=== PATIENT | male | born 2000 | race Caucasian/White ===

== ENCOUNTER 2018-10-13 16:25 | Emergency (ER) | payer OTHER ==
[2018-10-13] MEDS ORDERED: SODIUM CHLORIDE 0.9% 1,000 ML IV ONE (17:05)
--- NOTE | 2018-10-13 17:05 | ED Physician Documentation ---
History of Present Illness - Stated complaint Stated Complaint: FAST HEART - Chief complaint Chief Complaint: Cardiac - History obtained from History obtained from: Patient - Additonal information Additional information: The patient is a 18-year-old male who presents complaining of "fast heart rate" that started about 2 hours prior to arrival when eating [place] food. He reports associated nausea, without vomiting. He denies headache, chest pain, shortness of breath. He reports having similar symptoms about 5 years ago, lasting up to about 3 minutes before resolving spontaneously. He drinks coffee and zo. He denies the use of recreational drugs or recent alcohol. Review of Systems Constitutional: denies: Fever Eyes: denies: Irritation Ears: denies: Tinnitus/ringing Nose: denies: Congestion Throat: denies: Sore throat Cardiac: reports: Palpitations. denies: Chest pain / pressure Respiratory: denies: Dyspnea, Cough GI: denies: Abdominal Pain, Nausea, Vomiting : denies: Dysuria Skin: denies: Rash Musculoskeletal: denies: Back pain Neurologic: denies: Focal weakness, Numbness, Headache PD PAST MEDICAL HISTORY - Past Medical History Cardiovascular: None Respiratory: None Neuro: None Endocrine/Autoimmune: None - Present Medications Home Medications: Ambulatory Orders Medication Instructions Recorded Confirmed No Known Home Medications 10/13/18 10/13/18 - Allergies Allergies/Adverse Reactions: Allergies Allergy/AdvReac Type Severity Reaction Status Date / Time Penicillins Allergy Rash Verified 10/13/18 16:30 - Social History Does the pt smoke?: No PD ED PE NORMAL - Vitals Vital signs reviewed: Yes (Initially tachycardic and hypertensive.) - General General: Alert and oriented X 3, No acute distress, Well developed/nourished - HEENT HEENT: Atraumatic, Moist mucous membranes, Pharynx benign - Neck Neck: Supple, no meningeal sign, No adenopathy, No JVD - Cardiac Cardiac: No murmur, Other (Rapid rate, regular rhythm.) - Respiratory Respiratory: No respiratory distress, Clear bilaterally - Abdomen Abdomen: Non tender - Back Back: No CVA TTP - Derm Derm: No rash - Extremities Extremities: No edema, No calf tenderness / cord - Neuro Neuro: Alert and oriented X 3, No motor deficit, No sensory deficit Results - Vitals Vitals: Oxygen O2 Source Room air - EKG (time done) 16:39 Rate: Rate (enter#) (105) Rhythm: Sinus tachycardia [place]: Normal Intervals: Normal [place] QRS: Normal Ischemia: ST elevation c/w repol Computer interpretation: Agree with computer - Labs Labs: Laboratory Tests 10/13/18 10/13/18 10/13/18 16:51 16:51 16:51 WBC 8.6 RBC 5.43 Hgb 16.4 Hct 48.3 MCV 89.0 MCH 30.2 MCHC 34.0 RDW 12.3 Plt Count 231 MPV 8.7 Neut # (Auto) 5.4 Lymph # (Auto) 2.4 [place] # (Auto) 0.8 Eos # (Auto) 0.1 Baso # (Auto) 0.0 Absolute Nucleated RBC 0.01 Nucleated RBC % 0.1 Sodium 138 Potassium 3.4 L Chloride 102 Carbon Dioxide 27 Anion Gap 9.0 BUN 11 Creatinine 1.2 Estimated GFR (MDRD) 77 L Glucose 108 H Calcium 9.9 Total Bilirubin 0.5 AST 37 ALT 52 Alkaline Phosphatase 43 Troponin I < 0.04 Total Protein 8.4 H Albumin 5.1 Globulin 3.3 Albumin/Globulin Ratio 1.5 Lipase 36 TSH 10/13/18 16:51 WBC RBC Hgb Hct MCV MCH MCHC RDW Plt Count MPV Neut # (Auto) Lymph # (Auto) [place] # (Auto) Eos # (Auto) Baso # (Auto) Absolute Nucleated RBC Nucleated RBC % Sodium Potassium Chloride Carbon Dioxide Anion Gap BUN Creatinine Estimated GFR (MDRD) Glucose Calcium Total Bilirubin AST ALT Alkaline Phosphatase Troponin I Total Protein Albumin Globulin Albumin/Globulin Ratio Lipase TSH 1.67 PD MEDICAL DECISION MAKING - ED course Complexity details: reviewed results, re-evaluated patient, considered differential, d/w patient, d/w family ED course: The patient's presentation is significant for sinus tachycardia, with volume depletion. I suspect his symptoms are at least partially due to stimulant effect of caffeine from both coffee and zo. It is unclear that the [place] food he was eating had an impact, but that is also a consideration. There is no evidence to suggest cardiac dysrhythmia, other than sinus tachycardia, and no evidence of sepsis, pulmonary embolus, or hyperthyroidism. Laboratory analysis is unremarkable, including normal TSH. Treatment in the emergency department included administration of normal saline 1 L IV during his time in the emergency department his symptoms resolved, and his pulse gradually came down to 94. I discussed with him and his the likely source of symptoms, the importance of minimizing caffeine intake, outpatient follow-up, as well as potentially worrisome signs or symptoms that should prompt reevaluation in the emergency department. Departure - Departure Disposition: 01 Home, Self Care Clinical Impression: Sinus tachycardia, Dehydration Condition: Stable Instructions: ED Tachycardia Pat PSVT Follow-Up: JUAN VO [Primary Care Provider] - Comments: Drink plenty of fluids. Minimize coffee, zo, and other stimulant drinks or medications. Follow-up with your primary physician within 1 week. Call to schedule an appointment. Return to the emergency department if you develop increasing palpitations, chest pain, shortness of breath, or otherwise worsening symptoms. Forms: Activity restrictions Discharge Date/Time: 10/13/18 18:45
[2018-10-13 17:10] LABS: ALBUMIN 5.1 g/dL (3.2-5.5); ALBUMIN/GLOBULIN RATIO 1.5 (1.0-2.2); BILIRUBIN,TOTAL 0.5 mg/dL (0.2-1.0); CALCIUM 9.9 mg/dL (8.5-10.3); CREATININE 1.2 mg/dL (0.6-1.2); TOTAL PROTEIN 8.4 g/dL (6.7-8.2)
[2018-10-13 17:11] LABS: BASOPHILS % (AUTO) 0.4 %; EOSINOPHILS # (AUTO) 0.1 10^3/uL (0.0-0.7); EOSINOPHILS % (AUTO) 0.8 %; HGB - HEMOGLOBIN 16.4 g/dL (14.0-18.0); LYMPHOCYTES # (AUTO) 2.4 10^3/uL (1.5-3.5); LYMPHOCYTES % (AUTO) 27.7 %; MEAN CORPUSCULAR HEMOGLOBIN 30.2 pg (27.0-31.0); MEAN PLATELET VOLUME 8.7 fL (7.4-11.4); MONOCYTES # (AUTO) 0.8 10^3/uL (0.0-1.0); MONOCYTES % (AUTO) 8.8 %; NEUTROPHILS # (AUTO) 5.4 10^3/uL (1.5-6.6); NEUTROPHILS % (AUTO) 62.3 %; PLT - PLATELET COUNT 231 10^3/uL (130-450); RED BLOOD COUNT 5.43 10^6/uL (4.70-6.10); RED CELL DISTRIBUTION WIDTH 12.3 % (12.0-15.0); WHITE BLOOD COUNT 8.6 x10^3/uL (4.8-10.8)
[2018-10-13 18:28] VITALS: BP 138/89
== END 2018-10-13 18:45 | disposition home or self-care (01) ==
LOC: ED 16:25
DX: R00.0 Tachycardia, unspecified (principal); E86.0 Dehydration
CPT/HCPCS: 36415; 80053; 83690; 84443; 84484; 85025; 93005; 96360; 99283

== ENCOUNTER 2019-01-01 17:24 | Emergency (ER) | payer OTHER ==
[2019-01-01] MEDS ORDERED: LORazepam 1 MG TABLET PO STA (17:55)
--- NOTE | 2019-01-01 17:58 | ED Physician Documentation ---
History of Present Illness - Stated complaint Stated Complaint: INCREASED HR - Chief complaint Chief Complaint: Cardiac - History obtained from History obtained from: Patient, Friend - History of Present Illness Timing: Today Pain level max: 0 Pain level now: 0 - Additonal information Additional information: 28-year-old male started on citalopram for anxiety today. States that he felt his heart began to race after this helped tingling in his arms and lips. This is continued throughout the day. He also states he has occasional "jolts". No chest pain. No difficulty breathing. Nothing makes it better or worse Review of Systems Constitutional: denies: Fever, Chills Respiratory: denies: Cough GI: denies: Nausea, Vomiting, Diarrhea Skin: denies: Rash Musculoskeletal: denies: Neck pain, Back pain Neurologic: denies: Headache Psychiatric: reports: Anxiety PD PAST MEDICAL HISTORY - Past Medical History Past Medical History: Yes Cardiovascular: None Respiratory: None Neuro: None Endocrine/Autoimmune: None GI: GERD Psych: Anxiety - Past Surgical History Past Surgical History: No - Present Medications Home Medications: Ambulatory Orders Medication Instructions Recorded Confirmed Escitalopram [Lexapro] 10 mg PO DAILY 01/01/19 01/01/19 Omeprazole 20 mg PO DAILY PM 01/01/19 01/01/19 raNITIdine [Zantac] 150 mg PO DAILY 01/01/19 01/01/19 - Allergies Allergies/Adverse Reactions: Allergies Allergy/AdvReac Type Severity Reaction Status Date / Time Penicillins Allergy Rash Verified 01/01/19 17:29 - Social History Does the pt smoke?: No Smoking Status: Never smoker Does the pt drink ETOH?: No Does the pt have substance abuse?: No - Immunizations Immunizations are current?: Yes PD ED PE NORMAL - Vitals Vital signs reviewed: Yes - General General: Alert and oriented X 3, No acute distress - HEENT HEENT: Moist mucous membranes - Neck Neck: Supple, no meningeal sign - Cardiac Cardiac: Strong equal pulses, Other (Regular, tachycardic) - Respiratory Respiratory: No respiratory distress, Clear bilaterally - Abdomen Abdomen: Soft, Non tender, Non distended - Derm Derm: Warm and dry - Extremities Extremities: No edema, No calf tenderness / cord - Neuro Neuro: Alert and oriented X 3 - Psych Psych: Other (Anxious appearing) Results - Vitals Vitals: Vital Signs - 24 hr 01/01/19 01/01/19 01/01/19 17:26 17:49 18:47 Temperature 36.6 C Heart Rate 130 H 114 H 98 Respiratory 20 12 14 Rate Blood Pressure 152/98 H 148/107 H 140/86 H O2 Saturation 100 100 100 Oxygen O2 Source Room air - EKG (time done) 1742 Rate: Rate (enter#) (117) Rhythm: Sinus tachycardia [place]: Normal Intervals: Normal [place] QRS: Normal Ischemia: Non specific changes Compare to prior EKG: Unchanged from prior EKG - Rads (name of study) cxr Radiology: Prelim report reviewed, EMP read contemporaneously, See rad report (no acute disease) PD MEDICAL DECISION MAKING - ED course Complexity details: reviewed results, re-evaluated patient, considered differential, d/w patient ED course: 28-year-old male with what appears to be a panic attack today. No evidence of acute coronary syndrome, pulmonary embolus, pneumothorax. Symptoms resolved with a dose of Ativan. Recommend that he follow-up with his doctor for further evaluation and care. Patient is with his friend in the emergency department. Patient counseled regarding signs and symptoms for which I believe and urgent re-evaluation would be necessary. Patient with good understanding of and agreement to plan and is comfortable going home at this time This document was made in part using voice recognition software. While efforts are made to proofread this document, sound alike and grammatical errors may occur. Departure - Departure Disposition: 01 Home, Self Care Clinical Impression: Anxiety Condition: Good Instructions: ED Panic Attack Follow-Up: your,doctor in 1week [Other] Comments: Talk to your doctor about changing your medications. Return if you worsen Discharge Date/Time: 01/01/19 19:00
[2019-01-01 18:48] VITALS: BP 140/86
== END 2019-01-01 19:00 | disposition home or self-care (01) ==
LOC: ED 17:24
DX: F41.9 Anxiety disorder, unspecified (principal); R00.0 Tachycardia, unspecified
CPT/HCPCS: 93005; 99283; 99284; J8499